=== PATIENT | male | born 1965 ===

== ENCOUNTER 2020-07-15 10:30 | Outpatient (REF) | payer BC, SELFPAY ==
[2020-07-19 10:39] LABS: SARS-CoV-2 RNA Undetected (Undetected); SARS-CoV-2 Specimen Source Nasopharynx
== END 2020-07-15 10:50 ==
LOC: NCHCN 10:30
PROVIDERS: PCP Internal Medicine; Visit Provider Internal Medicine
DX: Z20.828 Contact with and (suspected) exposure to other viral communicable diseases (principal)
CPT/HCPCS: U0003

== ENCOUNTER 2021-11-11 15:31 | Outpatient (REF) | payer BC, SELFPAY ==
[2021-11-11 21:28] LABS: HCT 43.6 % (40.0-50.0); HGB 14.5 g/dL (13.5-17.5); MCH 28.2 pg (27.0-33.0); MCHC 33.3 % (32.0-36.0); MCV 84.7 fL (80-95); MPV 9.5 fL (8.0-11.0); Platelet Count 296 10^3/uL (130-400); RBC 5.15 10^6/uL (4.36-5.78); RDW 12.9 % (11.8-14.1); RDW-SD 39.8 fL; WBC 8.26 10^3/uL (4.4-10.8)
[2021-11-11 21:48] LABS: Anion Gap 8.6 mmol/L (3-11); BUN 15 mg/dL (7-18); CO2 28.4 mmol/L (21.0-32.0); CREATININE 0.9 mg/dL (0.70-1.30); Calcium 9.2 mg/dL (8.5-10.1); Calculated LDL 118 mg/dL (<100); Chloride 102 mmol/L (98-107); Cholesterol 222 mg/dL (<200); Glucose 94 mg/dL (74-106); HDL Cholesterol 41 mg/dL (40-60); Potassium 3.9 mmol/L (3.5-5.1); Sodium 139 mmol/L (136-145); Triglyceride 319 mg/dL (<150)
[2021-11-13 11:01] LABS: Hepatitis C Ab w Rflx HCV PCR Negative (Negative)
== END 2021-11-11 15:32 | disposition home or self-care (01) ==
LOC: NCHCN 15:31
PROVIDERS: PCP Internal Medicine; Visit Provider Internal Medicine
DX: E66.9 Obesity, unspecified (principal); G47.33 Obstructive sleep apnea (adult) (pediatric); Z00.00 Encounter for general adult medical examination without abnormal findings; Z11.59 Encounter for screening for other viral diseases
CPT/HCPCS: 80048; 80061; 85027; 86803; 84443

== ENCOUNTER 2021-11-12 18:28 | Outpatient (REF) | payer BC, SELFPAY | END 2021-11-12 18:29 | disposition home or self-care (01) | LOC: NCHCN 18:28 | PROVIDERS: PCP Internal Medicine; Visit Provider Internal Medicine ==

== ENCOUNTER 2025-01-04 22:52 | Outpatient (REF) | payer BC, SELFPAY ==
[2025-01-04 19:10] LABS: Calculated LDL 122 mg/dL (<100); Cholesterol 195 mg/dL (<200); HDL Cholesterol 40 mg/dL (>or=40); Triglyceride 165 mg/dL (<150)
[2025-01-04 20:32] LABS: Hemoglobin A1C 5.9 % (<5.7)
== END 2025-01-04 22:53 | disposition home or self-care (01) ==
LOC: NCHCN 22:52
PROVIDERS: PCP Internal Medicine; Visit Provider Internal Medicine
DX: E66.3 Overweight (principal)
CPT/HCPCS: 80061; 83036